=== PATIENT | female | born 1995 | race Caucasian/White ===

== ENCOUNTER 2021-11-23 13:32 | Inpatient (IN) | payer MEDICAID ==
[~2021-11-23] VITALS: Ht 167.6 cm; Wt 88.5 kg
[2021-11-23 15:07] LABS: AMPHETAMINES LEVEL URINE NEGATIVE (NEGATIVE); BARBITURATES URINE NEGATIVE (NEGATIVE); BENZODIAZEPINES URINE NEGATIVE (NEGATIVE); CANNABINOIDS URINE POSITIVE (NEGATIVE); COCAINE METABOLITE URINE NEGATIVE (NEGATIVE); MEAN CORPUSCULAR HEMOGLOBIN 31.7 pg (27.0-33.0); MEAN CORPUSCULAR HGB CONC 34.9 g/dl (32.0-36.5); MEAN CORPUSCULAR VOLUME 90.9 fl (80.0-96.0); METHADONE URINE NEGATIVE (NEGATIVE); OPIATES URINE NEGATIVE (NEGATIVE); PHENCYCLIDINE URINE NEGATIVE (NEGATIVE); PLATELET COUNT, AUTOMATED 253 10^3/uL (150-450); RED BLOOD COUNT 4.73 10^6/uL (4.00-5.40)
[2021-11-23 15:38] LABS: RSV AMPLIFICATION NEGATIVE (NEGATIVE)
[2021-11-23 16:26] LABS: ALBUMIN 3.9 GM/DL (3.2-5.2); ALT/SGPT 33 U/L (12-78); BILIRUBIN,DIRECT 0.3 MG/DL (0.0-0.2); BILIRUBIN,TOTAL 0.6 MG/DL (0.2-1.0); BLOOD UREA NITROGEN 10 MG/DL (7-18); CALCIUM LEVEL 9.3 MG/DL (8.5-10.1); CARBON DIOXIDE LEVEL 19 MEQ/L (21-32); CHLORIDE LEVEL 110 MEQ/L (98-107); CREATININE FOR GFR 0.75 MG/DL (0.55-1.30); GLOMERULAR FILTRATION RATE > 60.0 (>60); GLUCOSE, FASTING 115 MG/DL (70-100); POTASSIUM SERUM 4.3 MEQ/L (3.5-5.1); SALICYLATE LEVEL < 1.7 MG/DL (5.0-30.0); SODIUM LEVEL 141 MEQ/L (136-145); TOTAL PROTEIN 6.8 GM/DL (6.4-8.2)
[2021-11-23 16:56] LABS: ETHYL ALCOHOL (ETHANOL) < 0.003 % (0.000-0.010)
[2021-11-23 16:57] LABS: HCG, SERUM QUALITATIVE NEGATIVE (NEGATIVE)
[2021-11-23] MEDS ORDERED: IBUPROFEN 600MG TAB PO ONE (17:00)
[2021-11-23] MEDS ORDERED: MOM 30ML SUSPENSION UDC PO PRN (18:50)
[2021-11-23] MEDS ORDERED: MAALOX 30 ML SUSP *UDC PO PRN (18:50)
[2021-11-23] MEDS ORDERED: ACETAMINOPHEN TAB 650MG DOSE (2X325MG) PO PRN (18:50)
[2021-11-23 19:36] LABS: ACETAMINOPHEN LEVEL < 2.0 UG/ML (0.0-30.0)
[2021-11-23] MEDS ORDERED: HOME MED LIST COMPLETE! XX SCH (19:45)
[2021-11-23 23:58] VITALS: BP 142/85
[2021-11-24] MEDS: traZODone 50 MG TAB PO PRN ×2 (01:32→19:49)
[2021-11-24 06:47] VITALS: BP 146/64
[2021-11-24 17:12] VITALS: BP 134/70
[2021-11-24] MEDS: LORazepam 0.5 MG TAB PO PRN (21:30)
[2021-11-25 06:20] VITALS: BP 123/64
[2021-11-25] MEDS: LORazepam 0.5 MG TAB PO PRN (09:46)
[2021-11-25] MEDS ORDERED: TRAZ-252 PO (11:31)
== END 2021-11-25 12:58 | disposition home or self-care (01) | DRG 754 ==
LOC: M ED 13:32 → M ED INP 18:47 → M PSY 11-24 00:13
PROVIDERS: ADMIT Student in an Organized Health Care Education/Training Program; ATTEND Student in an Organized Health Care Education/Training Program
DX: F32.9 Major depressive disorder, single episode, unspecified (principal); E28.2 Polycystic ovarian syndrome; F43.10 Post-traumatic stress disorder, unspecified; Z63.4 Disappearance and death of family member; F60.3 Borderline personality disorder; F41.0 Panic disorder [episodic paroxysmal anxiety]; R45.851 Suicidal ideations; Z88.0 Allergy status to penicillin; F12.90 Cannabis use, unspecified, uncomplicated; F53.0 Postpartum depression